=== PATIENT | male | born 1950 | race Caucasian/White ===

== ENCOUNTER 2017-11-13 16:42 | Observation (INO) ==
[2017-11-13] MEDS ORDERED: ONDANSETRON 4 MG/2 ML VIAL IV STA (16:47)
[2017-11-13] MEDS ORDERED: SODIUM CHLORIDE 0.9% 1,000 ML IV STA (16:47)
[2017-11-13 17:35] LABS: Basophils % 0.4 % (0.0-0.8); Eosinophils # 0.2 10*3/uL (0.0-0.87); Eosinophils % 2.1 % (0.00-10.9); Hematocrit 44.4 VOL% (42.0-52.0); Hemoglobin 15.3 GM/DL (14.0-18.0); Immature Granulocytes % 0.3 %; Immature Granulocytes Absolute 0.03 #; Lymphocytes # 1.3 10*3/uL (1.4-4.0); Mean Corpuscular HGB Conc 34.5 GM/DL (32-36); Mean Corpuscular Hemoglobin 32 PG (27-34); Mean Corpuscular Volume 91.7 FL (87-102); Mean Platelet Volume 12.2 FL (9.6-12.0); Monocytes # 0.5 10*3/uL (0.11-0.8); Neutrophils # 7.4 10*3/uL (1.4-7.4); Neutrophils % 78.2 % (38.7-73.9); Platelet Count 133 T/CUMM (130-400); Red Blood Count 4.84 MC/CUMM (3.8-5.5); White Blood Count 9.5 T/CUMM (4-12)
[2017-11-13 17:58] LABS: Albumin 3.2 G/DL (3.4-5.0); Bilirubin,Total 1.1 MG/DL (0.2-1.0); Calcium 8.5 MG/DL (8.5-10.1); Osmolality,Calculated 279.5 MOS/KG (273-304); Potassium 4.2 MMOL/L (3.5-5.1); Total Protein 6.6 G/DL (6.4-8.3)
[2017-11-13 18:05] LABS: Apearance,Urine CLEAR (Clear); Bilirubin,Urine Negative (Negative); Blood, Urine Small mg/dL (Negative); Glucose,Urine (UA) Negative (Negative); Ketones,Urine Negative (Negative); Nitrite,Urine Negative (Negative); Protein,Urine Negative; RBC,Urine 1 /HPF (0-4); Urine Color Straw (Yellow); Urine Specific Gravity 1.006 (1.001-1.035); Urine Urobilinogen < 2.0 EU/DL (0.2-1.0); WBC,Urine <1 /HPF (0-6)
[2017-11-13] MEDS ORDERED: PROMETHAZINE 25 MG/1 ML VIAL IM PRN (19:05)
[2017-11-13] MEDS ORDERED: MAGNESIUM SULF RIDER 4 GM in PREMIX 1 EACH IV PRN (19:05)
[2017-11-13] MEDS ORDERED: MAGNESIUM SULF RIDER 2 GM in PREMIX 1 EACH IV PRN (19:05)
[2017-11-13] MEDS ORDERED: ONDANSETRON 4 MG/2 ML VIAL IV PRN (19:05)
[2017-11-13] MEDS ORDERED: PROMETHAZINE 25 MG TABLET PO PRN (19:05)
[2017-11-13] MEDS ORDERED: diphenhydrAMINE 50 MG/1 ML VIAL IV PRN (20:44)
[2017-11-13] MEDS ORDERED: ACETAMINOPHEN 325 MG TABLET PO PRN (20:47)
[2017-11-13] MEDS ORDERED: WARFARIN 5 MG TABLET PO SCH (21:00)
[2017-11-13] MEDS ORDERED: LATANOPROST 0.005% OPH SOLN 2.5 ML BOTTLE BOTH EYES SCH (21:00)
[2017-11-13] MEDS ORDERED: ENOXAPARIN 100 MG/ML SYRINGE SUBCUT SCH (21:00)
[2017-11-13] MEDS ORDERED: ATORVASTATIN 20 MG TABLET PO SCH (21:00)
[2017-11-13 21:32] LABS: INR 1.2; PT Patient Result 12.1 SECS; Partial Thromboplastin Time 26.7 SECS (0-40)
[2017-11-13] MEDS: CARVEDILOL 3.125 MG TABLET PO SCH (21:42)
[2017-11-13] MEDS: APIXABAN 5 MG TABLET PO SCH (21:42)
[2017-11-14 07:55] VITALS: BP 118/67
[2017-11-14] MEDS: CARVEDILOL 3.125 MG TABLET PO SCH (08:29)
[2017-11-14] MEDS: APIXABAN 5 MG TABLET PO SCH (08:29)
[2017-11-14 08:44] LABS: INR 1.3; PT Patient Result 13.2 SECS
[2017-11-14] MEDS ORDERED: ASPIRIN EC 81 MG TABLET PO SCH (09:00)
[2017-11-14] MEDS ORDERED: PANTOPRAZOLE 40 MG TABLET PO SCH (09:00)
[2017-11-14] MEDS ORDERED: LISINOPRIL 2.5 MG TABLET PO SCH (09:00)
[2017-11-14] MEDS ORDERED: LEVOFLOXACIN 500 MG TABLET PO SCH (10:00)
[2017-11-14] MEDS ORDERED: DIGOXIN 0.25 MG TABLET PO SCH (13:00)
== END 2017-11-14 10:42 | disposition home or self-care (01) ==
LOC: EDUNIT# → EDBD → N.ED 16:42 → N.EDINP 16:42 → N.TELES 19:40
PROVIDERS: ADMIT Internal Medicine Clinical Cardiac Electrophysiology; ATTEND Internal Medicine Clinical Cardiac Electrophysiology